=== PATIENT | female | born 1990 | race Two or more races ===

== ENCOUNTER 2017-01-02 08:50 | Emergency (ER) | payer SELFPAY ==
[~2017-01-02] VITALS: Ht 160 cm; Wt 98.9 kg
[2017-01-02 09:08] VITALS: BP 120/77
[2017-01-02] MEDS ORDERED: KETOROLAC TROMETH 60MG/2ML VIAL IM ONE (10:15)
== END 2017-01-02 13:11 | disposition home or self-care (01) ==
LOC: ER 08:50
DX: S20.219A Contusion of unspecified front wall of thorax, initial encounter (principal); V00.121A Fall from non-in-line roller-skates, initial encounter; Y93.51 Activity, roller skating (inline) and skateboarding; Y92.89 Other specified places as the place of occurrence of the external cause; Y99.8 Other external cause status
CPT/HCPCS: 71250; 74176; 96372; 99284; J1885